=== PATIENT | male | born 1970 ===

== ENCOUNTER 2018-05-23 11:13 | Emergency (ER) | payer OTHER ==
[2018-05-23 11:23] VITALS: RESP 18
[2018-05-23] MEDS ORDERED: Sodium Chloride 0.9% 1,000 ML IV STA (11:43)
--- NOTE | 2018-05-23 11:48 | ED PDOC ---
HPI:Nausea, Vomiting, Diarrhea Time Seen by Provider: 05/23/18 11:28 Chief Complaint (Nursing): GI Problem Chief Complaint (Provider): Diarrhea History Per: Patient History/Exam Limitations: no limitations Have you had recent travel within the past 21 days to any of the following countries: [place], [place], [place] or [place]?: No Additional Complaint(s): Pt reports multiple episodes of nonbloody diarrhea X 4 days, associated with nausea and crampy abdominal pain, took Imodium with some relief. Denies fever, vomiting, symptoms. CD4 count <1000. Past Medical History Reviewed: Nursing Documentation, Vital Signs Vital Signs: Last Vital Signs Temp 97.5 F L 05/23/18 11:22 Pulse 84 05/23/18 11:22 Resp 18 05/23/18 11:22 BP 133/93 H 05/23/18 11:22 Pulse Ox 98 05/23/18 11:22 - Medical History PMH: HIV Denies: Asthma - Surgical History Surgical History: No Surg Hx - Family History Family History: States: Unknown Family Hx - Social History Current smoker - smoking cessation education provided: No Alcohol: None - Immunization History Hx Tetanus Toxoid Vaccination: Yes (2012) Hx Influenza Vaccination: Yes (08/2015) Hx Pneumococcal Vaccination: No - Home Medications Home Medications: Ambulatory Orders Medication Instructions Recorded Eszopiclone [Lunesta] 3 mg PO HS PRN 04/28/16 Albuterol HFA [Ventolin HFA 90 2 puff IH Q4 PRN #1 unit 09/08/16 mcg/actuation (8 g)] Azithromycin [Zithromax] 1 dose PO DAILY #1 pkt 09/08/16 Azithromycin 250 mg PO DAILY #6 tab 04/19/18 Benzonatate [Tessalon Perles] 200 mg PO TID PRN #15 sgl 04/19/18 Dicyclomine [Bentyl] 20 mg PO QID PRN #10 tab 05/23/18 - Allergies Allergies/Adverse Reactions: Allergies Allergy/AdvReac Type Severity Reaction Status Date / Time Penicillins Allergy Intermediate RASH Verified 04/19/18 09:11 Review of Systems Constitutional: Negative for: Fever, Chills Cardiovascular: Negative for: Chest Pain, Palpitations Respiratory: Negative for: Cough, Shortness of Breath Gastrointestinal: Positive for: Nausea, Abdominal Pain, Diarrhea. Negative for : Vomiting, Hematochezia, Hematemesis Musculoskeletal: Negative for: Neck Pain, Back Pain Skin: Negative for: Rash, Lesions Neurological: Negative for: Headache, Dizziness Physical Exam - Reviewed Nursing Documentation Reviewed: Yes Vital Signs Reviewed: Yes - Physical Exam Appears: Positive for: Well, No Acute Distress Head Exam: Positive for: ATRAUMATIC, NORMAL INSPECTION Skin: Positive for: Normal Color, Warm, Dry Eye Exam: Positive for: Normal appearance, EOMI, PERRL Cardiovascular/Chest: Positive for: Regular Rate, Rhythm Respiratory: Positive for: Normal Breath Sounds Gastrointestinal/Abdominal: Positive for: Normal Exam, Bowel Sounds, Soft. Negative for: Tenderness, Distended, Guarding, Rebound Back: Positive for: Normal Inspection Extremity: Positive for: Normal ROM Neurologic/Psych: Positive for: Alert, Oriented - Laboratory Results Result Diagrams: 05/23/18 11:45 05/23/18 11:45 - ECG O2 Sat by Pulse Oximetry: 98 Pulse Ox Interpretation: Normal - Progress ED Course And Treament: Pt feels better. Re-evaluation Time: 14:50 Condition: Improved Medical Decision Making Medical Decision Makin yo male with diarrhea. - labs - IVF - Zofran - Bentyl Disposition - Clinical Impression Clinical Impression: Diarrhea - Disposition Disposition: Routine/Home Disposition Time: 14:50 Condition: IMPROVED Additional Instructions: FOLLOW-UP WITH PMD WITHIN 2 DAYS FOR REEVALUATION. Prescriptions: Dicyclomine [Bentyl] 20 mg PO QID PRN #10 tab PRN Reason: Pain, Moderate (4-7) Instructions: Diarrhea in Adolescents and Adults Forms: [facility] (Mauritian)
[2018-05-23 12:01] LABS: BASO % 0.5 % (0.0-2.0); EOS # 0.1 K/uL (0.0-0.7); EOS % 2.5 % (0.0-4.0); HEMOGLOBIN 14.3 g/dL (12.0-18.0); LYMPH # 1.5 K/uL (1.0-4.3); LYMPH % 33.3 % (20.0-40.0); MEAN CELL VOLUME 107.8 fl (80.0-94.0); MEAN CORPUSCULAR HEMOGLOBIN 37.2 pg (27.0-31.0); MEAN CORPUSCULAR HGB CONC 34.5 g/dL (33.0-37.0); MEAN PLATELET VOLUME 9.2 fl (7.2-11.7); MONO # 0.7 K/uL (0.0-0.8); MONO % 15.3 % (0.0-10.0); NEUT # 2.2 K/uL (1.8-7.0); NEUT % 48.4 % (50.0-75.0); NRBC % 0.1 % (0.0-0.0); RBC 3.86 Mil/uL (4.40-5.90); RED CELL DISTRIBUTION WIDTH 13.1 % (11.5-14.5); WHITE BLOOD COUNT 4.6 K/uL (4.8-10.8)
[2018-05-23 12:16] LABS: ALB/GLOB RATIO 1.4 (1.0-2.1); ALBUMIN 4.5 g/dL (3.5-5.0); ALT/SGPT 35 U/L (21-72); AST/SGOT 47 U/L (17-59); BLOOD UREA NITROGEN 10 mg/dl (9-20); CALCIUM 9.5 mg/dL (8.4-10.2); GFR AFRICAN-AMERICAN > 60; GFR NON-AFRICAN AMERICAN > 60
[2018-05-23 12:18] LABS: URINE BILIRUBIN NEGATIVE (NEGATIVE); URINE BLOOD NEGATIVE (NEGATIVE); URINE CLARITY SLIGHTY-CLOUDY (Clear); URINE COLOR YELLOW (YELLOW); URINE GLUCOSE (UA) NEG (Normal); URINE LEUKOCYTE ESTERASE NEG Leu/uL (Negative); URINE PROTEIN NEGATIVE (NEGATIVE); URINE UROBILINOGEN 0.2-1.0 mg/dL (0.2-1.0)
[2018-05-23 15:07] VITALS: BP 128/88; PULSE 87; TEMP 97.8
[2018-05-24 07:49] VITALS: O2SAT 98
== END 2018-05-23 15:00 | disposition home or self-care (01) ==
LOC: H.ER 11:13
DX: R19.7 Diarrhea, unspecified (principal); Z88.0 Allergy status to penicillin
CPT/HCPCS: 80053; 81003; 85025; 87045; 96360; 99284; J7030

== ENCOUNTER 2018-12-30 09:56 | Day surgery (SDC) | payer OTHER ==
[2018-12-30 10:28] VITALS: BMI 22.4
[2018-12-30] MEDS ORDERED: Lactated Ringer's 500 ML IV ONE (10:30)
[2018-12-30] MEDS ORDERED: Propofol 10 mg/ml Inj (20 ML) ONE (11:03)
[2018-12-30 11:32] VITALS: RESP 15; TEMP 98; O2SAT 100
[2018-12-30 11:51] VITALS: BP 108/72; PULSE 68
== END 2018-12-30 14:23 | disposition home or self-care (01) ==
LOC: MERGE 09:56 → H.ENDO 09:56
PROVIDERS: ATTEND Internal Medicine Gastroenterology
DX: Z12.11 Encounter for screening for malignant neoplasm of colon (principal); K21.9 Gastro-esophageal reflux disease without esophagitis; K64.0 First degree hemorrhoids; K31.89 Other diseases of stomach and duodenum; R12 Heartburn; Z21 Asymptomatic human immunodeficiency virus [HIV] infection status
CPT/HCPCS: 43239; 88305; G0121; J2001; J2704; J7120